=== PATIENT | female | born 1965 | race Caucasian/White ===

== ENCOUNTER → 2019-08-18 11:29 | Outpatient (BNVA) | payer BC, SELFPAY | PROVIDERS: Family Provider Family Medicine; PCP Family Medicine; Referring Provider Family Medicine; Visit Provider Podiatrist Foot & Ankle Surgery | DX: M79.671 Pain in right foot (principal); M77.31 Calcaneal spur, right foot; M20.11 Hallux valgus (acquired), right foot | CPT/HCPCS: 73630 ==

== ENCOUNTER 2019-08-18 15:21 | Outpatient (CLI) | payer BC, SELFPAY | END 2019-08-18 15:22 | disposition home or self-care (01) | LOC: SPT 15:22 | PROVIDERS: Family Provider Family Medicine; PCP Family Medicine; Visit Provider Podiatrist Foot & Ankle Surgery | DX: Z46.89 Encounter for fitting and adjustment of other specified devices (principal); M87.00 Idiopathic aseptic necrosis of unspecified bone | CPT/HCPCS: L4361 ==

== ENCOUNTER → 2019-09-06 11:37 | Outpatient (BNVA) | payer BC, MEDICAID, SELFPAY | PROVIDERS: Family Provider Family Medicine; PCP Family Medicine; Visit Provider Podiatrist Foot & Ankle Surgery | DX: M25.571 Pain in right ankle and joints of right foot (principal) | CPT/HCPCS: 73610 ==

== ENCOUNTER 2019-09-29 14:38 | Outpatient (CLI) | payer BC, MEDICAID, SELFPAY ==
--- NOTE | 2019-09-29 15:00 | CT_ITS ---
WS: [id number] NONCONTRAST OF RIGHT LOWER EXTREMITY CLINICAL INFORMATION: Avascular necrosis TECHNIQUE: Noncontrast right lower extremity with coronal and sagittal reformatted images. . COMPARISON: Radiographs 09/06/2019 and 08/18/2019 DLP: 582.[address] scans at [facility] use at least one of these dose optimization techniques: automat ed exposure control; mA and/or kV adjustment per patient size (includes targeted exams where dose is matched to clinical indication); or iterative reconstruction. FINDINGS: Moderate to advanced degenerative arthritis at the tibiotalar articulation. Ankle mortise is preserve d. Normal medial and lateral malleolus. Advanced degenerative changes with flattening involving the t alus. Subchondral cystic change along the talar dome with a small amount of sclerosis dorsally and po sterior. No subchondral collapse. Hypertrophic spurring along the neck of the talus and posterior talar facet. Advanced degenerative ar thritis involving the talocalcaneal articulations with sclerosis and subchondral cystic change. Advan josué erosive changes involving the talocalcaneal articulation. Small to moderate joint effusion. Dorsa l hypertrophic spurring involving the navicular. Advanced osteopenia. Mild soft tissue edema lower leg foot and ankle. Mild hallux valgus. Metatarsals are normal in appearance. Normal MCP joints. IP joint narrowing involving the PIP and DIP joints. Ordonez mmertoe deformities. Tarsal bones are normally aligned. Normal TMT joints. Pes planus with flattening of the talus. Planta r calcaneal spurring. Calcified loose body along the dorsal posterior calcaneus measures 1.[address]/CT foot ankle RT wo con IMPRESSION: 1. Advanced osteoarthritis right foot and ankle with osteopenia and pes planus . Small moderate joint effusion. 2. Slight sclerosis with advanced subchondral cystic change involving the ana r dome although no evidence of subchondral collapse. Findings can be seen with advanced degenerative changes with a small suspected area of avascular necrosis involving the dorsal posterior talar dome. 3. Markedly advanced degenerative changes involving the talocalcaneal articula tion with subchondral cystic change and sclerosis. Chronic appearing erosive ch anges at the talocalcaneal joint. 4. Hypertrophic spurring involving the talar neck and posterior talar facet 5. Talonavicular articulation demonstrates mild degenerative arthritis. Navicu lar is normal in appearance. 6. Normal visualized metatarsals and TMT joints.
== END 2019-09-29 14:39 | disposition home or self-care (01) ==
LOC: RADWPI 15:33
PROVIDERS: Family Provider Family Medicine; PCP Family Medicine; Visit Provider Podiatrist Foot & Ankle Surgery
DX: M87.071 Idiopathic aseptic necrosis of right ankle (principal); M19.071 Primary osteoarthritis, right ankle and foot; M77.31 Calcaneal spur, right foot; M05.79 Rheumatoid arthritis with rheumatoid factor of multiple sites without organ or systems involvement; Z79.899 Other long term (current) drug therapy; Z11.59 Encounter for screening for other viral diseases; Z13.820 Encounter for screening for osteoporosis; Z79.52 Long term (current) use of systemic steroids; Z72.89 Other problems related to lifestyle
CPT/HCPCS: 36415; 73700; 76377; 80076; 82306; 82565; 85651; 86140; 86704; 99214

== ENCOUNTER → 2019-09-29 15:04 | Outpatient (BNVA) | payer BC, SELFPAY | PROVIDERS: Family Provider Family Medicine; PCP Family Medicine; Visit Provider Internal Medicine Rheumatology | DX: Z13.820 Encounter for screening for osteoporosis (principal); Z79.52 Long term (current) use of systemic steroids; Z79.899 Other long term (current) drug therapy; M05.9 Rheumatoid arthritis with rheumatoid factor, unspecified; Z11.59 Encounter for screening for other viral diseases; Z71.89 Other specified counseling; M05.79 Rheumatoid arthritis with rheumatoid factor of multiple sites without organ or systems involvement; M87.071 Idiopathic aseptic necrosis of right ankle | CPT/HCPCS: 85025 ==

== ENCOUNTER 2019-11-11 15:48 | Outpatient (CLI) | payer BC, SELFPAY ==
--- NOTE | 2019-11-11 16:15 | XR_ITS ---
WS: [id number] SCREENING DEXA SCAN [place] CLINICAL INFORMATION: Screening for osteoporosis COMPARISON: None. FINDINGS: The L1-L4 bone mineral density measures 1.132 g/cm2. This corresponds to a T score score of -0.4 and Z score of 0.4. Left femoral neck bone mineral density measures 0.849 g/cm2. This corresponds to a T score of -1.3 an d Z score of -0.6. Right femoral neck bone mineral density measures 0.830 g/cm2. This corresponds to a T score -1.4of an d Z score of -0.8. Mean femoral neck bone mineral density measures 0.839 g/cm2. This corresponds to a T score of -1.3 an d Z score of -0.7. XR/XR DEXA axial skeleton* 13070 IMPRESSION: Osteopenia Patient's FRAX calculated 10 year probability for major osteoporotic fracture i s 9.9 % and osteoporotic hip fracture is 1.1%.
== END 2019-11-11 15:49 | disposition home or self-care (01) ==
LOC: RADWPI 15:54
PROVIDERS: Family Provider Family Medicine; PCP Family Medicine; Visit Provider Internal Medicine Rheumatology
DX: Z13.820 Encounter for screening for osteoporosis (principal)
CPT/HCPCS: 77080

== ENCOUNTER 2019-11-19 12:28 | Observation (INO) | payer BC, MEDICAID, SELFPAY ==
[2019-11-18 13:34] VITALS: BMI 27.8
[2019-11-19] VITALS (18 sets, daily range): BP systolic 119–168; BP diastolic 59–98; PULSE 73–105; RESP 14–24; TEMP 36.2–37.1; O2SAT 94–100
[2019-11-19] MEDS: sodium chloride 0.9% 1,000 ML 30 ML IV (06:30)
--- NOTE | 2019-11-19 06:30 | ANES.PREANE2 ---
Pre-Anesthetic Assessment Pre-Anesthetic Assessment: Height/Weight: Height 1.57 m Weight 68.946 kg Temp Pulse Resp BP Pulse Ox 97.6 F 73 18 168/80 98 11/19/19 06:07 11/19/19 06:07 11/19/19 06:07 11/19/19 06:07 11/19/19 06:07 Preop Diagnosis: Avascular necrosis right talus Proposed Procedure: Operation Date: 11/19/19 07:00 Proposed Procedures p right ankle fusion (12559) right subtalar joint fusion (52538)/M87.071(Right) - Omid Figueroa DPM Familial anesthetic complications: none Last intake: Intake Last Liquid Date 11/18/19 Last Liquid Time 17:30 Last Solid Date 11/18/19 Last Solid Time : Social: Social History: No alcohol Comment: former smoker (quit 3 months ago) Exam: Pre-Anes Outpt Exam: alert, oriented x 3, clear to auscultation bilaterally and regular rate & rhythm Airway: Cervical ROM: WNL MP: 3 Additional comments: edentulous Pulmonary: Pulmonary: None reported CV/HEM: CV/HEM: None reported : : None reported Hepatic: Hepatic: None reported GI: GI: None reported Metabolic: Metabolic: None reported Musc/skel: Musc/skel: RA Comments: does not affect neck, R avascular necrosis of ankle Neuropsych: Neuropsych: None reported Anesthetic Plan: ASA status: 2 Anesthesia: General and Regional (specify below) Risk of > 500 ml blood loss (7ml/kg in children): No PFSH Anesthesia PFSH: Medical History Encounter for screening for other viral diseases High risk medication use Immunization counseling Rheumatoid arthritis Rheumatoid arthritis with rheumatoid factor Surgical History History of hysterectomy History of tubal ligation Family History Other Diabetes Denies family history of CAD (coronary artery disease) Clotting disorder Dementia Hyperlipidemia Psychiatric illness Chronic kidney disease (CKD) Suicide Anesthesia complication Bleeding disorder Family history of premature coronary artery disease Lung disease Cancer Hypertension Stroke Social History Smoking and tobacco status: former smoker Second hand smoke exposure: Yes Alcohol intake: never Lives independently: Yes Household members: spouse Housing: House Marital status: Data Anesthesia Cardiac Studies: No Data to Display
[2019-11-19] MEDS: midazolam 1 mg/mL INJ 2 mL 2 MG IVP (06:35)
--- NOTE | 2019-11-19 06:44 | ANES.PROC ---
Anesthesia Procedures Procedure/Date: 11/19/19 Nerve Block ^: Nerve Block 1: Main Anesthesia: general anesthesia Time Out Performed: Yes Consent: requested by attending/covering physician, from patient, risks and benefits reviewed and patient agrees to proceed Nerve block location: popliteal (R) Anesthesia monitors applied: pulse oximetry, BP cuff and oxygen Nerve block position: supine Anesthetic Used: ropivicaine 0.5% and with decadron (4 mg) Amount of anesthesia used (mL): 30 Ultrasound used to: recognize landmarks Nerve Stimulator Used?: No Interscalene/Femoral BLK: 4 stimuplex 21 g needle used for position and inplane approach, visualize local anesthetic spread and no vascular puncture identified Injection: neg aspiration of heme Patient Tolerated Procedure: well and no complications Complications: none
--- NOTE | 2019-11-19 06:48 | P.HPUD_ITS ---
Surgery/Procedure H&P Update DATE OF PROCEDURE: November 19, 2019 DATE H&P PERFORMED: 11/15/19 H&P UPDATE INFORMATION: I have reviewed H&P completed within last 30 days, I have examined patient prior to procedure, No changes to prior documentation and H&P is in [facility] on date indicated PREOP DIAGNOSIS: Avascular necrosis right talus PLANNED PROCEDURE: Operation Date: 11/19/19 07:00 Proposed Procedures p right ankle fusion (08608) right subtalar joint fusion (28279)/M87.071(Right) - Omid Figueroa DPM
--- NOTE | 2019-11-19 11:42 | XR_ITS ---
WS: [id number] ANKLE RIGHT TECHNIQUE: 3 views of the right ankle CLINICAL INFORMATION: post op COMPARISON: September 06, 2019 FINDINGS: Surgical sutures and splint material. Resection of the mid to distal fibula. Plate and screw fixation involving the distal tibia extending to the tibial plafond. Screw fixation across the ankle mortise traversing the talus and talocalcaneal joint. Additional screw fixation across the calcaneus and ana r calcaneal articulation. Osteopenia. Soft tissue edema. XR/XR ankle RT min 3V* 60172 IMPRESSION: 1. Postoperative changes with resection the mid to distal fibula diaphysis. 2. Plate and screw fixation involving the distal tibia diaphysis extending to the tibial plafond. 3. Cannulated screw fixation across the talus and calcaneus.
--- NOTE | 2019-11-19 11:56 | SUR.PHASEI ---
1155 R. TOES CAP REFILL <3 SEC, NO SENSATION/MOVEMENT TO TOES
--- NOTE | 2019-11-19 13:42 | P.HP_ITS ---
Providers/Chief Complaint Admitting Physician: Cherelle Jones DO Primary Care Provider: Winston Garcia MD History of Present Illness Mily Eckert is a 54 year old female with a past medical history of rheumat oid arthritis that presented to the hospital today for scheduled surgery. Patient has been recommended to be monitored overnight due to extensive surgery and for pain control. Patient reported that she was feeling well prior to surgery other than ankle pain. She denies any chest pain, no shortness of breath, no cough or sputum production. Patient denies any exposure to CO VID- 19. Review of Systems Const: Denies: fever(s) or chills Eyes: Denies: change in vision ENMT: Denies: nasal congestion Card: Denies: chest pain, palpitations or edema Resp: Denies: dyspnea, productive cough or hemoptysis GI: Denies: abdominal pain, nausea, vomiting, diarrhea, constipation, hematochezia or melena : Denies: dysuria or hematuria Musc: Reports: extremity pain; Denies: muscle cramps Skin/Breast: Denies: rash or new lesions Neuro: Denies: headache(s) or dizziness Psych: Denies: anxiety or depression Endo: Denies: polyuria or hot flashes Iam/Lymph: Denies: easy bruising or easy bleeding Medications/Allergies Home Medications Medication Instructions Recorded Confirmed Last Taken Type Cam Boot #1 ea 08/18/19 11/18/19 Unknown Rx cholecalciferol (vitamin D3) 250 10,000 unit PO DAILY 08/18/19 11/18/19 11/18/19 History mcg (10,000 unit) capsule crutch #2 each 08/18/19 11/18/19 Unknown Rx mecobalamin (vitamin B12) 1,000 1,000 mcg SUBLINGUAL DAILY 08/18/19 11/18/19 11/18/19 History mcg disintegrating tablet,sublingual hydroxychloroquine 200 mg tablet 200 mg PO BID #60 tab 10/06/19 11/18/19 11/18/19 Rx sulfasalazine 500 mg 1 gm PO BID #120 tab 10/06/19 11/18/19 11/18/19 Rx tablet,delayed release oxycodone-acetaminophen 10 mg-325 1 tab PO Q6H PRN 7 Days #21 tab 11/16/19 11/18/19 Unknown Rx mg tablet rivaroxaban 10 mg tablet 10 mg PO DAILY 30 Days #30 tab 11/16/19 11/18/19 Unknown Rx Allergies Allergy/AdvReac Type Severity Reaction Status Date / Time No Known Allergies Allergy Verified 11/18/19 13:34 PFSH Acute PFSH: Medical History Encounter for screening for other viral diseases High risk medication use Immunization counseling Rheumatoid arthritis Rheumatoid arthritis with rheumatoid factor Surgical History History of hysterectomy History of tubal ligation Family History Other Diabetes Denies family history of CAD (coronary artery disease) Clotting disorder Dementia Hyperlipidemia Psychiatric illness Chronic kidney disease (CKD) Suicide Anesthesia complication Bleeding disorder Family history of premature coronary artery disease Lung disease Cancer Hypertension Stroke Social History Smoking and tobacco status: former smoker Second hand smoke exposure: Yes Alcohol intake: never Lives independently: Yes Household members: spouse Housing: House Marital status: Vitals/I&O/Wt Last Vital Signs Temp 97.7 F 11/19/19 12:10 Pulse 95 11/19/19 12:10 Resp 18 11/19/19 12:10 BP 140/78 11/19/19 12:10 Pulse Ox 97 11/19/19 12:10 11/18/19 11/19/19 11/19/19 22:59 06:59 14:59 Intake Total 1550 / 1550 Output Total 440 / 440 Balance 1110 / 1110 Weight last 48 hrs Weight 68.946 kg Weight 68.946 kg Physical Exam Const: COMMON NORMALS: patient oriented x3 and alert GENERAL APPEARANCE: cooperative ORIENTATION/CONSCIOUSNESS: Yes awake, Yes oriented to person, Yes oriented to place and Yes oriented to time HENMT: COMMON NORMALS: normocephalic and atraumatic HEAD & SCALP: normocephalic and atraumatic Eye: COMMON NORMALS: Equal, round and reactive pupils present PUPIL: Yes Equal, round and reactive pupils present Neck/C-Spine: COMMON NORMALS: supple GENERAL: Yes normal visual inspection Resp: COMMON NORMALS: normal respiratory effort and clear to auscultation bilaterally EFFORT & INSPECTION: Yes able to speak in complete sentences AUSCULTATION: clear to auscultation bilaterally, no rhonchi and no wheezes Cardio: COMMON NORMALS: regular rate, regular rhythm and No murmurs present (Cardio) RATE: regular rate RHYTHM: regular rhythm GI: COMMON NORMALS: Soft to palpation and non-tender INSPECTION: No abdominal distension AUSCULTATION: Yes normoactive bowel sounds PALPATION: Yes Soft to palpation : COMMON NORMALS: Yes no CVA tenderness BLADDER/KIDNEY EXAM: Yes no CVA tenderness Back/Pelvis: COMMON NORMALS: no CVA tenderness Extremity: COMMON NORMALS: no clubbing, cyanosis or edema and no calf tenderness NARRATIVE EXTREMITY EXAM: Postoperative dressing in place in the right ankle Neuro: COMMON NORMALS: patient oriented x3, CN's II-XII intact bilaterally, moves all extremities and no focal motor deficits SENSORIUM/ORIENTATION: Yes alert, Yes oriented to person, Yes oriented to place and Yes oriented to time SPEECH: speech normal Psych: COMMON NORMALS: mental status grossly normal and cooperative Skin: COMMON NORMALS: no rashes or lesions noted GENERAL SKIN EXAM: no rashes or lesions noted Urinary Catheter Management^: Flores: Cath Placed During This Visit: yes Urinary Catheter Date of Insertion: 11/19/19 Urinary Catheter Time of Insertion: 07:20 A&P Assessment and plan (1) Avascular necrosis of right talus: Status post right subtalar joint fusion by Dr. Figueroa We will follow with postoperative recommendations Status: Acute (2) Rheumatoid arthritis with rheumatoid factor: Patient is followed by Dr. Lofton Plan is to continue on Plaquenil and sulfasalazine in the outpatient setting Status: Acute Qualifiers: Rheumatoid arthritis location: multiple sites Qualified Code(s): M05.79 - Rheumatoid arthritis with rheumatoid factor of multiple sites without organ or systems involvement Additional A&P Information DVT prophylaxis: Xarelto plan for discharge, plan for foot pumps at this time with initiation of pharmacologic DVT prophylaxis tomorrow Diet: Increase to regular diet as tolerated Attestations Medical Necessity Statement*: Observation for pain control in the postoperative setting due to significant avascular necrosis of the right talus requiring operative intervention and fusion, expected stay less than 2 midnights Coding Level of Care Code 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
[2019-11-19] MEDS: oxyCODONE-APAP 10-325 mg Tablet 1 TAB PO (14:08)
--- NOTE | 2019-11-19 17:19 | P.OP_ITS ---
Operative Report Date of procedure: November 19, 2019 Pre-op Diagnosis: Avascular necrosis right talus Post-op diagnosis: same Post-op Findings: Avascular necrosis of right talus. Significant arthrosis of the tibiotalar and talocalcaneal joints. Procedure Done: Right tibiotalar arthrodesis, open CPT code 50210 Right subtalar arthrodesis CPT code 61359 Implants: Sargent 28 hardware utilized for this procedure. Standard right tibial talocalcaneal lateral plate 4.2 mm x 32 mm locking screw x1 4.2 mm x 30 mm locking screw x1 4.5 mm x 26 mm nonlocking screw x2 4.5 mm x 26 mm locking screw x1 4.5 mm x 30 mm locking screw x2 4.5 mm x 28 mm locking screw x1 4.5 mm x 24 mm locking screw x3 4.5 mm x 22 mm locking screw x2 7.0 x 48 mm headed cannulated screw x1 7.0 mm x 74 mm headless cannulated screw x1 5 cc cellular bone matrix V92 Specimens removed/disposition: None Pathology: none sent Surgeon: Omid Figueroa D.P.M. Disaster Director: Bernardo Estimated blood loss (mL): 40 Complications: None Findings: Avascular necrosis of right talus. Significant arthrosis of the tibiotalar and talocalcaneal joints. Condition: stable Disposition: floor Brief History: Patient is a pleasant 54-year-old female with avascular necrosis of right talus requiring tibial talocalcaneal arthrodesis. Had extensive discussions in regards to the risks of this procedure. Discussed nonunion rate of approximately 30% this is even increased further by her underlying comorbidity of rheumatoid arthritis. Discussed risk of need for further surgical intervention and/or even amputation of leg should she have difficulty healing. Risks also include delayed union, nonunion, malunion, hardware failure, hardware irritation, wound dehiscence and surgical site infection, long-term nonweightbearing with increased risk for DVT, PE heart attack stroke and . Procedure: Under mild sedation the patient was brought to the operating room and placed on the operating table in supine position. A timeout was performed. General anesthesia was administered by the anesthesia service. Also a popliteal block was performed preoperatively per anesthesia. Saphenous nerve block performed by myself consisting of 5 cc of 0.5% Marcaine plain. Well-padded pneumatic tourniquet was applied to the right thigh. Right lower extremity was then scrubbed, prepped and draped utilizing normal aseptic technique. Right foot and lower leg was examined a weighted with an Esmarch bandage and the tourniquet was inflated to 250 mmHg. Attention was directed to the lateral ankle where a linear longitudinal incision was made at the lower one third of the lateral fibula at its posterior border coursing distally to the lateral malleolus and to the level of mid calcaneus. Dissection was carried down through subcutaneous tissue utilizing sharp and blunt technique. Care was taken to retract and preserve all neurovascular and tendinous structures. Bleeders were ligated and cauterized as necessary. Peroneal tendons were retracted and protected posteriorly and the sural nerve was identified and retracted inferiorly. A Viramontes osteotomy was performed with a beveled edge to avoid bony prominences in the distal for below was excised and passed from the operative field this was decorticated and prepared as bone graft. Self-retaining distractor and Steinmann pins utilized to access the tibiotalar and talocalcaneal joints to denude all remaining cartilage down to and through subchondral bone utilizing a ring curette, power bur as well as subchondral drilling with a 2 oh subchondral drill bit, all joint surfaces were prepared this included the tibial plafond and, talar dome, subtalar joint of the talus and calcaneal all 3 facets. There was a significant deficit at the lateral talar body due to avascular necrosis all nonviable bone was excised and resected to the level of healthy bleeding bone. Incision site and joints were flushed with saline solution. The calcaneus had a lateral displacement this was reduced and held in a 5 degree valgus position and neutral ankle joint dorsiflexion followed by temporary fixation across the tibial talocalcaneal joints with a Steinmann pin. Position was adequate and confirmed with intraoperative fluoroscopy on 3 cardinal planes. Prior to temporary fixation the arthrodesis sites at the tibiotalar and talocalcaneal joints were prepped with V 92 cellular bone growth, temporary fixation was performed and the entire deficit at the lateral talar body was packed with the auto graft prepared from the morselized right distal fibula. Plate was then fixated at the lateral tibia talar calcaneal interface starting with fixation across the talus utilizing 4.2 millimeters screws. Following this all the wires were inserted at the distal and proximal portions of the plate followed by crossing 7 oh screws utilizing the Sargent 28 precision guide from posterior superior tibia directed inferior and anterior across the tibiotalar joint with excellent bony apposition and compression noted. A second 7.0 mm headless compression screw was inserted utilizing the precision guide this was from posterior inferior to superior anterior across the tibial calcaneal joint. Positioning was noted to be excellent in all 3 cardinal planes with direct visualization as well as intraoperative fluoroscopy. Next plate holes were filled with a combination of locking and nonlocking 4.5 millimeter screws as noted above both distally and proximally at the plate utilizing standard AO technique. A very solid construct was appreciated the ankle joint was held in neutral position during the duration of the fixation. Orthopedic hardware was confirmed to have excellent placement on AP mortise and lateral views of the right lower extremity. The incision site was flushed with copious amounts of sterile saline solution. Periosteum and tendon sheath was reapproximated utilizing 2-0 Vicryl. Subcutaneous tissue reapproximated utilizing 4-0 Vicryl. Skin was reapproximated utilizing ana cristina at the lateral incision, percutaneous incision at the posterior leg posterior heel and instep were reapproximated utilizing 4-0 nylon. Liposomal bupivacaine was also utilized subcutaneously at the incision sites. Incision sites were then dressed with Adaptic, sterile 4 x 4's, Kerlix, ABD pad followed by application of well-padded multilayer compressive posterior splint with stirrup. Tourniquet was deflated and a prompt hyperemic response was noted to the distal digits of the patient's right foot. Patient tolerated the procedure well and was transferred to the PACU with vital signs stable and vascular status intact. Following a period of postoperative monitoring she will be transferred to the floor for overnight observation and pain management greatly appreciate Dr. Jones hospitalist who accepted admission. 1 day postoperatively patient will resume her current home medications with exception Azathioprine as well as NSAIDs and prednisone as these are concerning for bony healing she does have rheumatoid arthritis this puts her at a increased risk for bony nonunion. 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 Lofton. I would also like her to take calcium 950 mg daily as well as 500 mg daily of vitamin C. She has been prescribed pain medication and is already filled this to utilize on discharge from hospital. I also prescribed Xarelto 10 mg to be taken once daily she has a 30-day supply and this will be extended to 3 months if indicated. Patient is to remain strict nonweightbearing to the right lower extremity to elevate her right foot above the hip at all times. She is to keep her postoperative dressing clean, dry and intact until follow-up visit in podiatry clinic next week Friday. Patient was provided my cell phone number and is to contact me with any postoperative questions or concerns.
[2019-11-19] MEDS: sodium chloride 0.9% 1,000 ML 50 ML IV (17:36)
[2019-11-19] MEDS: sulfaSALAzine 500 mg Tablet 1000 MG PO (18:52)
[2019-11-20] VITALS (9 sets, daily range): BP systolic 98–119; BP diastolic 57–65; PULSE 79–91; RESP 18–19; TEMP 36.9–37; O2SAT 96–99
[2019-11-20] MEDS: oxyCODONE-APAP 10-325 mg Tablet 1 TAB PO ×3 (00:16→10:00)
--- NOTE | 2019-11-20 00:45 | PC.NURSE ---
initial inspection of pt surgical dressing, was noted to have light pink drainage to back of brace and small amount on pillow below at shift change. Pt foot remained elevated with ice. 2300 Pt also complained of burning at top of youngblood and foot. Upon inspection and neurochecks, cap refill WNL and foot warm to touch. Was not able to palpate pulse due to the dressing. It was discovered at this time the area on the pillow had more serosanguineous drainage. Charge nurse notified and laid eyes on as well. Applied two full kerlix rolls around ankle and chux below. Will check hourly for increase in drainage - if noted to be present, phys will be notified.
--- NOTE | 2019-11-20 03:35 | PC.NURSE ---
second hourly check on dressing and there is no noted drainage seen through the reinforced kerlix or on the chux beneath the ankle. Cap refill WNL, foot warm with toe movement, pulse not palpable due to dressing tightness. Patients pain is well controlled at this time.
[2019-11-20] MEDS: sodium chloride 0.9% 1,000 ML 50 ML IV (05:03)
--- NOTE | 2019-11-20 05:03 | PC.NURSE ---
Site examined, quarter sized sanguineous drainage noted at heel. Circled. Neurochecks WNL, mild pain also noted, pt declined pain pill at this time.
[2019-11-20 05:56] LABS: Basophils % 0.2 %; Eosinophils % 0.4 %; Hematocrit 29.2 % (37.0-47.0); Hemoglobin 9.4 g/dL (11.5-15.3); Lymphocytes # 1.2 10^3/uL (0.8-4.8); Lymphocytes % 14.6 %; Mean Corpuscular HGB Conc 32.2 g/dL (30.0-36.0); Mean Corpuscular Hemoglobin 34.2 pg (28.0-34.0); Mean Corpuscular Volume 106.2 fL (81-99); Mean Platelet Volume 9.8 fL (7.4-10.4); Monocytes # 1.2 10^3/uL (0.2-0.9); Monocytes % 14.3 %; Neutrophils # 5.9 10^3/uL (1.8-7.7); Nucleated Red Blood Cells % 0 %; Platelet Count 185 10^3/cmm (130-400); Red Blood Count 2.75 10^6/uL (4.1-5.3); White Blood Count 8.4 10^3/uL (4.0-10.0)
[2019-11-20 06:24] LABS: Anion Gap 13.2 (5-19); Blood Urea Nitrogen 19 mg/dL (6-20); Carbon Dioxide 22 mmol/L (22-29); Chloride 109 mmol/L (98-107); Glomerular Filtration Rate 74.2 mL/min (90-130); Glucose 108 mg/dL (65-115); Osmolality Calculated 287 mOsm/kg (285-295); Potassium 4.2 mmol/L (3.5-5.1); Sodium 140 mmol/L (136-145)
[2019-11-20] MEDS: cholecalciferol (vitamin D3) 5,000 unit Tablet 10000 UNIT PO (08:00)
[2019-11-20] MEDS: sulfaSALAzine 500 mg Tablet 1000 MG PO (08:00)
--- NOTE | 2019-11-20 09:24 | PM.DCS ---
Discharge Providers Date of Admission: 11/19/19 12:28 Date of Discharge: November 20, 2019 Attending Provider at Admission: Cherelle Jones DO Attending Provider at Discharge: Nicky Caro MD Primary Care Provider: Winston Garcia MD Diagnoses at Discharge Discharge Diagnosis (1) Avascular necrosis of right talus: Status: Acute Problem details: -POD # 1 s/p R tibiotalar and subtalar arthrodesis, done by Dr. Figueroa -pain well controlled -notable sanguinous drainage through bulky dressing overnight; dressing changed at bedside by Dr. Figueroa. Incision looks appropriate -neurovascular status intact -strict NWB status, RLE elevation -DVT ppx with Xarelto x 3 months -Flores catheter removed post-op, voiding without difficulty (2) Rheumatoid arthritis with rheumatoid factor: Status: Chronic Problem details: -f/u with Dr. Lofton -continue Plaquenil and sulfasalazine; hold Azathioprine -continue vitamin B12, vitamin D supplements Qualifiers: Rheumatoid arthritis location: multiple sites Qualified Code(s): M05.79 - Rheumatoid arthritis with rheumatoid factor of multiple sites without organ or systems involvement Other Information Additional DC diagnoses/information: -CKD stage 2; renal function wnl Reason for Visit Reason for Visit: Reason For Visit: Avascular necrosis of R talus Hospital Course Hospital Course: Patient was admitted to the medical surgical floor following her scheduled surgery for avascular necrosis of right talus. She had a right tibiotalar and subtalar arthrodesis done by Dr. Figueroa yesterday. Due to extent of surgery, need for appropriate pain control patient was monitored overnight. She did well postop, has been hemodynamically stable, afebrile, and was noted to have quite a bit of sanguinous drainage soaking through her bulky dressing. This was removed this morning by Dr. Figueroa and clean reinforced dressing applied. Incision looks appropriate with ana cristina intact. Patient is to maintain strict nonweightbearing status of the right lower extremity, and to keep it elevated as much as possible. She does have an underlying history of rheumatoid arthritis and is to continue treatment with sulfasalazine and Plaquenil. She follows up with rheumatology Dr. Lofton and is to continue to do so. Due to need for non-weightbearing status for prolonged period of time and underlying rheumatological disorder she is to continue DVT prophylaxis with Xarelto for 3 months. She is scheduled for follow-up with Dr. Figueroa next week. She is also to continue to follow-up with Dr. Garcia. Per discussion with Dr. Figueroa she will be discharged home today. Pain has been effectively controlled overnight and she will be discharged on oral analgesics. Discharge Summary: -Patient to follow-up with Dr. Garcia within 1 week -Patient to follow-up with Dr. Figueroa next week as scheduled -Patient to continue to follow-up with Dr. Lofton Physical Exam Const: COMMON NORMALS: no acute distress, patient oriented x3 and alert GENERAL APPEARANCE: cooperative and comfortable; not ill appearing ORIENTATION/CONSCIOUSNESS: Yes awake HENMT: COMMON NORMALS: normocephalic, atraumatic, hearing grossly normal bilaterally and moist oral mucous membranes HEAD & SCALP: normocephalic and atraumatic Eye: COMMON NORMALS: Equal, round and reactive pupils present, EOMs intact bilaterally and conjunctivae normal CONJUNCTIVA: Yes conjunctivae normal PUPIL: Yes Equal, round and reactive pupils present Neck/C-Spine: COMMON NORMALS: full ROM GENERAL: Yes normal visual inspection and Yes trachea midline Resp: COMMON NORMALS: normal respiratory effort, No retractions, No use of accessory muscles and clear to auscultation bilaterally EFFORT & INSPECTION: Yes able to speak in complete sentences, Yes symmetric chest movement and No tachypneic AUSCULTATION: clear to auscultation bilaterally Cardio: COMMON NORMALS: regular rate, regular rhythm, S1 normal heart sound present, S2 normal heart sound present and No murmurs present (Cardio) RATE: regular rate RHYTHM: regular rhythm HEART SOUNDS: S1 normal heart sound present and S2 normal heart sound present GI: COMMON NORMALS: Normal to inspection, nondistended, normoactive bowel sounds present, Soft to palpation and non-tender PALPATION: Yes Soft to palpation : BLADDER/KIDNEY EXAM: No catheter in place Extremity: COMMON NORMALS: normal to inspection, full ROM, no clubbing, cyanosis or edema and no pedal edema OTHER: RLE: linear incision on lateral R ankle, ana cristina intact, bulky dressing with noted bloody drainage soaked through multiple layers of dressing, neurovascularly intact, foot warm and palpable peripheral pulses, no noted erythema. Small incision site on medial foot, just distal to R great toe, sutures intact, no erythema or drainage Neuro: COMMON NORMALS: patient oriented x3, moves all extremities, no focal motor deficits and no sensory deficits noted SENSORIUM/ORIENTATION: Yes alert GAIT: Yes Other gait observations present (NWB on RLE) Psych: COMMON NORMALS: mental status grossly normal, Normal thought process present, cooperative, normal affect and speech normal SPEECH: Yes normal speech THOUGHT PROCESS: Normal thought process present Skin: COMMON NORMALS: no rashes or lesions noted, no jaundice, no petechiae and no mottling GENERAL SKIN EXAM: no rashes or lesions noted Urinary Catheter Management^: Flores: Cath Placed During This Visit: yes Urinary Catheter Date of Insertion: 11/19/19 Urinary Catheter Time of Insertion: 07:20 Discharge Data Data Completed and Pending: Completed Studies During Hospitalization Category Date Time Status XR ankle RT min 3 V* [id number] Routine Exams 11/19/19 11:42 Completed Labs from last 24 hours 11/20/19 11/20/19 05:29 05:29 WBC 8.4 RBC 2.75 L Hgb 9.4 L Hct 29.2 L MCV 106.2 H MCH 34.2 H MCHC 32.2 RDW 14.0 Plt Count 185 MPV 9.8 Neut % (Auto) 70.0 Lymph % (Auto) 14.6 [place] % (Auto) 14.3 Eos % (Auto) 0.4 Baso % (Auto) 0.2 Neut # (Auto) 5.9 Lymph # (Auto) 1.2 [place] # (Auto) 1.2 H Eos # (Auto) 0.0 Baso # (Auto) 0.0 Nucleated RBC % (a uto) 0 Nucleated RBCs # 0.0 Sodium 140 Potassium 4.2 Chloride 109 H Carbon Dioxide 22 Anion Gap 13.2 BUN 19 Creatinine 0.8 GFR Calculation 74.2 L Glucose 108 Calculated Osmolal ity 287 Calcium 9.0 Vitals: Last Vital Signs Temp 98.4 F 11/20/19 07:27 Pulse 87 11/20/19 07:27 Resp 18 11/20/19 08:00 BP 107/62 11/20/19 07:27 Pulse Ox 97 11/20/19 08:00 Discharge Plan Discharge Patient Disposition: Home, Self-Care Condition: Stable Prescriptions: Continued cholecalciferol (vitamin D3) 10,000 unit capsule 10,000 unit PO DAILY RF: 0 mecobalamin (vitamin B12) 1,000 mcg tablet,disintegrating 1,000 mcg SUBLINGUAL DAILY RF: 0 (DME) crutch Misc See Rx Instructions .ROUTE .MEDSUPPLY Qty: 2 RF: 0 (DME) [place] Qty: 1 RF: 0 oxycodone-acetaminophen [Percocet] 10-325 mg tablet 1 tab PO Q6H PRN (Reason: pain) 7 Days Qty: 21 RF: 0 Xarelto 10 mg tablet 10 mg PO DAILY 30 Days Qty: 30 RF: 0 hydroxychloroquine 200 mg tablet 200 mg PO BID Qty: 60 RF: 3 sulfasalazine 500 mg tablet,delayed release (DR/EC) 1 gm PO BID Qty: 120 RF: 3 Discharge Orders: Discharge Order (Routine); Ordered 11/20/19 Ordered By: Nicky Caro Referrals: Omid Figueroa DPM [Physician] - 11/25/19 (Please call Friday to set up a follow up for November 24.) Winston Garcia MD [Primary Care Provider] - 4-7 days (Please call Friday to set up a post hospital discharge follow up. Patient had subtalar joint fusion for avascular necrosis of R talus, done by Dr. Figueroa) Discharge Diet: Regular Discharge Activity: Limit activity as instructed Patient Instructions: Rheumatoid Arthritis (GEN) Activity Restrictions/Additional Instructions: -Please note that you are taking a blood thinner (Xarelto) and will need to monitor for excessive bleeding including blood in urine or stool, extensive bruising of skin, oozing from surgical incision site. -Please note that you are to continue to be NON WEIGHT BEARING on the RIGHT foot as instructed by Dr. Figueroa Discharge Attestations Time Spent in Discharge Care*: greater than 30 min Specific Discharge Activities: Specific discharge activities: educating patient, discussing with pcp/other providers, discussing with telehealth case manager/social workers/dc planners, documenting/other paperwork and evaluating patient/reviewing data Status at Discharge: Cognitive status at discharge: cognitively intact, Behavioral status at discharge: cooperative, Functional status at discharge: other assisted ambulation (Nonweightbearing on the right lower extremity) Overall status at discharge: patient is back to baseline Quality Metrics Clinical Quality Measures During this hospital stay, did patient experience: None Coding Level of Care Code 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
--- NOTE | 2019-11-20 10:29 | PC.NURSE ---
Patient was seen by Dr. Figueroa and PT Samir Davis. Did well with demonstrating how to use assist devices, and her precautions. Discharge paperwork reviewed, patient verbalized understanding. Patient's IV removed intact, pressure dressing dry and intact. Patient was having pain of 8, to right ankle and percocet 5/325 one tabe given. 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 Patient has scripts filled and at home.
--- NOTE | 2019-11-20 10:39 | P.PN_ITS ---
Subjective Subjective: Interval history: 1 days status post right tibial talocalcaneal arthrodesis secondary to avascular necrosis of the talus. Patient has done well overnight vitals are stable. Pain is been well managed. She is preparing to go home. There was some strikethrough bleeding on the postoperative dressing. Denies any specific complaints, patient denies any subjective nausea, vomiting, fever, chills, shortness of breath or chest pain. Medications: Reviewed: Yes Vitals/I&O/Wt Last Vital Signs Temp 98.4 F 11/20/19 07:27 Pulse 87 11/20/19 07:27 Resp 18 11/20/19 10:00 BP 107/62 11/20/19 07:27 Pulse Ox 99 11/20/19 10:00 11/19/19 11/20/19 11/20/19 22:59 06:59 14:59 Intake Total 220 / 1770 572.5 / 2342.5 Balance 220 / 1330 572.5 / 1902.5 Weight last 48 hrs Weight 154 lb 6 oz Weight 152 lb Weight 152 lb Physical Exam Narrative: EXAM NARRATIVE: GENERAL: Patient is alert and oriented ?3 and in no acute distress. The following is a focused right lower extremity exam. VASCULAR: Dorsalis pedis and posterior tibial arteries palpable. Capillary refill time less than 3 seconds to the distal hallux bilaterally. Calf is supple and nontender proximally and distally. Edema at the right lower extremity medially and laterally. NEUROLOGICAL: Protective sensation intact to light touch. DERMATOLOGICAL: Right ankle lateral incision is well coapted ana cristina intact no dehiscence, there is very mild active bleeding to this area this was able to acquire hemostasis via manual pressure. No ecchymosis, no erythema. Posterior leg incision x2 well coapted with sutures intact. MUSCULOSKELETAL: Musculoskeletal exam deferred due to postoperative state. No pain with posterior calf squeeze. Const: COMMON NORMALS: no acute distress, average body habitus, patient oriented x3, healthy appearing and alert GENERAL APPEARANCE: cooperative HENMT: COMMON NORMALS: normocephalic HEAD & SCALP: normocephalic Eye: COMMON NORMALS: Equal, round and reactive pupils present PUPIL: Yes Equal, round and reactive pupils present Neuro: COMMON NORMALS: patient oriented x3 SENSORIUM/ORIENTATION: Yes alert Urinary Catheter Management^: Flores: Cath Placed During This Visit: yes Urinary Catheter Date of Insertion: 11/19/19 Urinary Catheter Time of Insertion: 07:20 Data : 11/20/19 05:29 11/20/19 05:29 A&P Assessment and plan (1) Status post ankle arthrodesis: Status: Acute Patient has done well overnight and is preparing for discharge. Postoperative dressings demonstrated strikethrough bleeding these were changed. Dressings consisting of Adaptic, sterile 4 x 4's, ABD pad, Kerlix, multilayer compressive posterior splint with stirrup. Patient is to remain strict nonweightbearing and to elevate her right foot at all times while at rest. She did work with physical therapy for transfers. Pain is well controlled she did receive a popliteal block as well as Exparel at the incision. She has been provided pain medication as well as Xarelto she is to begin this today. Recommending daily vitamins postoperatively consisting of D3 2000 IU, calcium 950 mg, vitamin C 500 mg daily. She will follow-up in podiatry clinic next week 5-29 at 1:15 she was provided my cell phone numbers to contact me with any postoperative questions or concerns. Attestations Medical Necessity Statement*: Status post right tibiotalar calcaneal arthrodesis admitted overnight for observation and pain control. 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
== END 2019-11-20 11:35 | disposition home or self-care (01) ==
LOC: MEDSURG 12:34
PROVIDERS: Podiatrist Foot & Ankle Surgery; Admitting Provider Family Medicine; PCP Family Medicine; Visit Provider Family Medicine
PROC: (CPT 28750; principal; 2019-11-19 07:00)
DX: M87.071 Idiopathic aseptic necrosis of right ankle (principal); M05.79 Rheumatoid arthritis with rheumatoid factor of multiple sites without organ or systems involvement; Z87.891 Personal history of nicotine dependence
CPT/HCPCS: 27871; 28725; 12345; 36415; 51702; 73610; 80048; 85025; 96361; 96365; 96374; 97116; 97161; 97165; C1713; C9290; G0378; J0690; J1100; J2250; J2405; J2704; J2795; J3010; J3490; J7030

== ENCOUNTER → 2019-12-02 16:14 | Outpatient (BNVA) | payer BC, SELFPAY | PROVIDERS: PCP Family Medicine; Visit Provider Podiatrist Foot & Ankle Surgery | DX: M79.671 Pain in right foot (principal); M87.071 Idiopathic aseptic necrosis of right ankle; Z98.1 Arthrodesis status | CPT/HCPCS: 73630 ==

== ENCOUNTER → 2019-12-22 10:31 | Outpatient (BNVA) | payer BC, SELFPAY | PROVIDERS: PCP Family Medicine; Visit Provider Podiatrist Foot & Ankle Surgery | DX: Z98.1 Arthrodesis status (principal); Z98.890 Other specified postprocedural states; M87.071 Idiopathic aseptic necrosis of right ankle | CPT/HCPCS: 73610 ==

== ENCOUNTER → 2020-01-03 15:47 | Outpatient (BNVA) | payer BC, SELFPAY | PROVIDERS: PCP Family Medicine; Visit Provider Podiatrist Foot & Ankle Surgery | DX: Z98.1 Arthrodesis status (principal); Z98.890 Other specified postprocedural states; M87.071 Idiopathic aseptic necrosis of right ankle | CPT/HCPCS: 73610 ==

== ENCOUNTER 2020-02-04 09:55 | Outpatient (CLI) | payer BC, SELFPAY ==
--- NOTE | 2020-02-04 10:01 | XRR_ITS ---
PROCEDURE INFORMATION: Exam: XR Right Ankle Exam date and time: 02/04/2020 10:16 AM Age: 54 years old Clinical indication: Condition or disease; Other: Ptop; Prior surgery TECHNIQUE: Imaging protocol: XR Right ankle. Views: 3 or more views. COMPARISON: CR (LOW EXM, ) 01/03/2020 3:53 PM FINDINGS: Bones/joints: Surgical fusion of the tibiotalar joint and subtalar joint. Fusion appears complete. Resection of the distal aspect of the fibula. Osteopenia Degenerative changes talonavicular joint Spur formation at the insertion of the plantar aponeurosis. Soft tissues: Normal. XR/XR ankle RT min 3V* [id number] IMPRESSION: 1. Surgical fusion of the tibiotalar joint and subtalar joint. Fusion appears complete. 2. Resection of the distal aspect of the fibula.
== END 2020-02-04 09:56 | disposition home or self-care (01) ==
LOC: RAD 09:58
PROVIDERS: PCP Family Medicine; Visit Provider Podiatrist Foot & Ankle Surgery
DX: Z98.890 Other specified postprocedural states (principal); Z98.1 Arthrodesis status
CPT/HCPCS: 73610

== ENCOUNTER → 2020-02-10 10:57 | Outpatient (BNVA) | payer BC, SELFPAY | PROVIDERS: PCP Family Medicine; Visit Provider Internal Medicine Rheumatology | DX: M05.79 Rheumatoid arthritis with rheumatoid factor of multiple sites without organ or systems involvement (principal); Z98.1 Arthrodesis status; Z79.899 Other long term (current) drug therapy; M87.071 Idiopathic aseptic necrosis of right ankle; Z98.890 Other specified postprocedural states | CPT/HCPCS: 99214 ==

== ENCOUNTER → 2020-03-01 09:38 | Outpatient (BNVA) | payer BC, SELFPAY | PROVIDERS: PCP Family Medicine; Visit Provider Podiatrist Foot & Ankle Surgery | DX: Z98.1 Arthrodesis status (principal); M87.071 Idiopathic aseptic necrosis of right ankle; Z98.890 Other specified postprocedural states | CPT/HCPCS: 73610 ==

== ENCOUNTER → 2020-03-30 15:39 | Outpatient (BNVA) | payer BC, MEDICAID, SELFPAY | PROVIDERS: PCP Family Medicine; Visit Provider Podiatrist Foot & Ankle Surgery | DX: Z98.1 Arthrodesis status (principal) | CPT/HCPCS: 73610 ==

== ENCOUNTER → 2020-05-01 15:46 | Outpatient (BNVA) | payer BC, MEDICAID, SELFPAY | PROVIDERS: PCP Family Medicine; Visit Provider Podiatrist Foot & Ankle Surgery | DX: Z98.890 Other specified postprocedural states (principal); Z98.1 Arthrodesis status; M87.071 Idiopathic aseptic necrosis of right ankle | CPT/HCPCS: 73610 ==

== ENCOUNTER → 2020-06-01 15:59 | Outpatient (BNVA) | payer MEDICAID, SELFPAY | PROVIDERS: PCP Family Medicine; Visit Provider Podiatrist Foot & Ankle Surgery | DX: Z47.89 Encounter for other orthopedic aftercare (principal); Z98.1 Arthrodesis status; M87.071 Idiopathic aseptic necrosis of right ankle | CPT/HCPCS: 73610 ==

== ENCOUNTER → 2020-06-14 13:10 | Outpatient (BNVA) | payer MEDICAID, SELFPAY | PROVIDERS: PCP Family Medicine; Visit Provider Internal Medicine Rheumatology | DX: M05.79 Rheumatoid arthritis with rheumatoid factor of multiple sites without organ or systems involvement (principal); Z98.1 Arthrodesis status; Z79.899 Other long term (current) drug therapy; M87.071 Idiopathic aseptic necrosis of right ankle; Z87.891 Personal history of nicotine dependence | CPT/HCPCS: 99214 ==

== ENCOUNTER → 2020-07-04 15:41 | Outpatient (BNVA) | payer MEDICAID, SELFPAY | PROVIDERS: PCP Family Medicine; Visit Provider Podiatrist Foot & Ankle Surgery | DX: Z98.890 Other specified postprocedural states (principal); Z98.1 Arthrodesis status; M87.071 Idiopathic aseptic necrosis of right ankle | CPT/HCPCS: 73610 ==

== ENCOUNTER → 2020-08-01 15:47 | Outpatient (BNVA) | payer MEDICAID, SELFPAY | PROVIDERS: PCP Family Medicine; Visit Provider Podiatrist Foot & Ankle Surgery | DX: Z98.890 Other specified postprocedural states (principal); Z98.1 Arthrodesis status; M87.071 Idiopathic aseptic necrosis of right ankle | CPT/HCPCS: 73610 ==

== ENCOUNTER → 2020-08-29 15:51 | Outpatient (BNVA) | payer MEDICAID, SELFPAY | PROVIDERS: PCP Family Medicine; Visit Provider Podiatrist Foot & Ankle Surgery | DX: M25.571 Pain in right ankle and joints of right foot (principal); Z98.1 Arthrodesis status; M87.071 Idiopathic aseptic necrosis of right ankle; Z98.890 Other specified postprocedural states | CPT/HCPCS: 73610 ==

== ENCOUNTER → 2020-09-26 15:51 | Outpatient (BNVA) | payer MEDICAID, SELFPAY | PROVIDERS: PCP Family Medicine; Visit Provider Podiatrist Foot & Ankle Surgery | DX: M87.071 Idiopathic aseptic necrosis of right ankle (principal); M25.571 Pain in right ankle and joints of right foot; Z98.1 Arthrodesis status; Z98.890 Other specified postprocedural states | CPT/HCPCS: 73610 ==

== ENCOUNTER → 2020-10-24 15:46 | Outpatient (BNVA) | payer MEDICAID, SELFPAY | PROVIDERS: PCP Family Medicine; Visit Provider Podiatrist Foot & Ankle Surgery | DX: Z48.89 Encounter for other specified surgical aftercare (principal); Z98.890 Other specified postprocedural states; Z98.1 Arthrodesis status; M87.071 Idiopathic aseptic necrosis of right ankle; M25.571 Pain in right ankle and joints of right foot | CPT/HCPCS: 73610 ==

== ENCOUNTER → 2020-10-25 14:40 | Outpatient (BNVA) | payer MEDICAID, SELFPAY | PROVIDERS: PCP Family Medicine; Visit Provider Internal Medicine Rheumatology | DX: M05.79 Rheumatoid arthritis with rheumatoid factor of multiple sites without organ or systems involvement (principal); Z79.899 Other long term (current) drug therapy; M18.0 Bilateral primary osteoarthritis of first carpometacarpal joints; Z98.1 Arthrodesis status; Z87.891 Personal history of nicotine dependence | CPT/HCPCS: 99214 ==

== ENCOUNTER → 2020-11-22 09:30 | Outpatient (BNVA) | payer MEDICAID, SELFPAY | PROVIDERS: PCP Family Medicine; Visit Provider Podiatrist Foot & Ankle Surgery | DX: Z98.890 Other specified postprocedural states (principal); Z98.1 Arthrodesis status; M87.071 Idiopathic aseptic necrosis of right ankle; M25.571 Pain in right ankle and joints of right foot; Z48.89 Encounter for other specified surgical aftercare; M05.79 Rheumatoid arthritis with rheumatoid factor of multiple sites without organ or systems involvement; Z79.899 Other long term (current) drug therapy; Z71.89 Other specified counseling; M18.0 Bilateral primary osteoarthritis of first carpometacarpal joints | CPT/HCPCS: 73610 ==

== ENCOUNTER → 2021-02-21 16:02 | Outpatient (BNVA) | payer MEDICAID, SELFPAY | PROVIDERS: PCP Family Medicine; Visit Provider Podiatrist Foot & Ankle Surgery | DX: Z98.890 Other specified postprocedural states (principal); Z98.1 Arthrodesis status | CPT/HCPCS: 73610 ==

== ENCOUNTER → 2021-06-14 15:00 | Outpatient (BNVA) | payer MEDICAID, SELFPAY | PROVIDERS: PCP Family Medicine; Visit Provider Internal Medicine Rheumatology | DX: M05.79 Rheumatoid arthritis with rheumatoid factor of multiple sites without organ or systems involvement (principal); Z79.899 Other long term (current) drug therapy; Z79.52 Long term (current) use of systemic steroids; M18.0 Bilateral primary osteoarthritis of first carpometacarpal joints; M87.9 Osteonecrosis, unspecified; Z71.89 Other specified counseling | CPT/HCPCS: 99214 ==

== ENCOUNTER → 2021-08-27 11:40 | Outpatient (BNVA) | payer MEDICAID, SELFPAY | PROVIDERS: PCP Family Medicine; Visit Provider Podiatrist Foot & Ankle Surgery | DX: Z48.89 Encounter for other specified surgical aftercare (principal); Z98.890 Other specified postprocedural states; M87.071 Idiopathic aseptic necrosis of right ankle; M77.31 Calcaneal spur, right foot | CPT/HCPCS: 73610 ==

== ENCOUNTER → 2021-10-22 14:41 | Outpatient (BNVA) | payer MEDICAID, SELFPAY | PROVIDERS: PCP Family Medicine; Visit Provider Internal Medicine Rheumatology | DX: M05.79 Rheumatoid arthritis with rheumatoid factor of multiple sites without organ or systems involvement (principal); M18.0 Bilateral primary osteoarthritis of first carpometacarpal joints; M87.071 Idiopathic aseptic necrosis of right ankle; Z79.899 Other long term (current) drug therapy; Z71.89 Other specified counseling | CPT/HCPCS: 99214 ==

== ENCOUNTER → 2022-02-12 14:13 | Outpatient (BNVA) | payer MEDICARE, MEDICAID, SELFPAY | PROVIDERS: PCP Family Medicine; Visit Provider Internal Medicine Rheumatology | DX: M05.79 Rheumatoid arthritis with rheumatoid factor of multiple sites without organ or systems involvement (principal); M18.0 Bilateral primary osteoarthritis of first carpometacarpal joints; Z79.899 Other long term (current) drug therapy; Z71.89 Other specified counseling; M87.9 Osteonecrosis, unspecified; M85.80 Other specified disorders of bone density and structure, unspecified site; Z98.1 Arthrodesis status | CPT/HCPCS: 99214 ==

== ENCOUNTER → 2023-09-04 10:30 | Outpatient (BNVA) | payer MEDICARE, MEDICAID, SELFPAY | PROVIDERS: PCP Family Medicine; Visit Provider Internal Medicine Rheumatology | DX: M05.79 Rheumatoid arthritis with rheumatoid factor of multiple sites without organ or systems involvement (principal); Z79.899 Other long term (current) drug therapy; Z71.89 Other specified counseling; M18.0 Bilateral primary osteoarthritis of first carpometacarpal joints | CPT/HCPCS: 99214 ==

== ENCOUNTER → 2024-03-11 10:44 | Outpatient (BNVA) | payer MEDICARE, SELFPAY | PROVIDERS: PCP Family Medicine; Visit Provider Internal Medicine Rheumatology | DX: M05.79 Rheumatoid arthritis with rheumatoid factor of multiple sites without organ or systems involvement (principal); Z79.899 Other long term (current) drug therapy; Z71.85 Encounter for immunization safety counseling; M18.0 Bilateral primary osteoarthritis of first carpometacarpal joints; M87.9 Osteonecrosis, unspecified; Z98.890 Other specified postprocedural states; M85.80 Other specified disorders of bone density and structure, unspecified site | CPT/HCPCS: 99214 ==

== ENCOUNTER → 2024-09-09 10:52 | Outpatient (BNVA) | payer MEDICARE, SELFPAY | PROVIDERS: PCP Family Medicine; Visit Provider Internal Medicine Rheumatology | DX: M05.79 Rheumatoid arthritis with rheumatoid factor of multiple sites without organ or systems involvement (principal); Z79.899 Other long term (current) drug therapy; Z71.89 Other specified counseling; M18.0 Bilateral primary osteoarthritis of first carpometacarpal joints | CPT/HCPCS: 99214 ==

== ENCOUNTER → 2025-03-16 12:59 | Outpatient (BNVA) | payer MEDICARE, SELFPAY | PROVIDERS: PCP Family Medicine; Visit Provider Internal Medicine Rheumatology | DX: M05.79 Rheumatoid arthritis with rheumatoid factor of multiple sites without organ or systems involvement (principal); Z79.899 Other long term (current) drug therapy; Z71.85 Encounter for immunization safety counseling; M18.0 Bilateral primary osteoarthritis of first carpometacarpal joints; M87.071 Idiopathic aseptic necrosis of right ankle | CPT/HCPCS: 99214 ==